=== PATIENT | female | born 1990 | race Caucasian/White ===

== ENCOUNTER 2024-12-08 13:21 | Emergency (ER) | payer MEDICAID, SELFPAY ==
[2024-12-08 13:31] VITALS: BP 150/90; PULSE 88; RESP 17; TEMP 36.4; O2SAT 97; BMI 41.3
[2024-12-08 14:13] LABS: Collection Type, Urine Clean Catch
--- NOTE | 2024-12-08 14:22 | EDNOTE_ITS ---
ED Female Urogenital RME/HPI General Chief complaint: Urogenital-Female Stated complaint: MEDICAL CLEARANCE Time Seen by Provider: 12/08/24 13:26 Arrival date/time: 12/08/24 13:21 Limitations: no limitations RME / HPI RME / HPI Narrative: 34 year old female with history of kidney stones s/p ureteral stent placement presents to the ED brought in by [facility] for medical clearance today. Patient reports left flank and suprapubic abdominal pain today. States she has history of intermittent pain for several months which she says is due to recurring kidney and bladder stones. However, pain today is severe with no reported modifying factors. Accompanied by dysuria, urinary urgency, and nausea. Denies fevers, chills, vomiting, or hematuria. No other associated symptoms or complaints reported. Related Data Home Medications ?Medication ?Instructions ?Recorded ?Confirmed No Known Home Medications 11/12/22 0811/27 Allergies Allergy/AdvReac Type Severity Reaction Status Date / Time No Known Allergies Allergy Verified 11/12/22 09:02 Review of Systems Review of Systems Systems Reviewed: All systems reviewed, normal except as documented Past Medical History Past Medical History CARDIAC: Negative Congestive Heart Failure RESPIRATORY: Positive Asthma; Negative Chronic Obstructive Pulmonary Disease (COPD) GENITOURINARY: Negative Renal Disease ENDOCRINE: Negative Diabetes Mellitus Type 1 or Diabetes Mellitus Type 2 Social History SMOKING STATUS: Current every day smoker SUBSTANCE USE: amphetamines, methamphetamine and other (Benzodiazepines (Valium) ) ED Exam General Limitations: Present no limitations General appearance: Present alert and obese Head Head exam: Present atraumatic Eye Eye exam: Present normal appearance, PERRL and EOMI ENT ENT exam: Present normal exam, normal oropharynx and mucous membranes moist Neck Neck exam: Present normal inspection, full ROM and trachea midline Chest Chest inspection: Present normal inspection and symmetric chest wall rise Respiratory Respiratory exam: Present normal lung sounds bilaterally Cardiovascular Cardiovascular exam: Present regular rate, normal rhythm and normal heart sounds Abdominal Exam Abdominal exam: Present soft and normal bowel sounds Extremities Exam Extremities exam: Present normal inspection and full ROM Back Exam Back exam: Present full ROM and CVA tenderness (R) (mild tenderness) Neurological Exam Neurological exam: Present alert, oriented X3 and CN II-XII intact Psychiatric Psychiatric exam: Present normal affect and normal mood Skin Skin exam: Present warm, dry, intact and normal color Course Course Course Narrative: Patient received IV fluids, Zofran, and Morphine while in the ED with improvement. 1650: Made aware by RN the patient is wishing to leave against medical advice. I discussed a great length that without further evaluation and monitoring there may be unforeseen circumstances and deterioration causing permanent bodily harm or as a result of their choice. The patient is alert, oriented and competent at this time. The patient states that they are aware of the serious risks as explained, but they continue to wish to leave against medical advice. Quality Measures none Orders Category Date Time Status IV [Insert IV] NOW Care 12/08/24 15:46 Completed Blood Culture (Lab) Stat Lab 12/08/24 14:40 Completed CBC Stat Lab 12/08/24 14:46 Completed Comprehensive Metabolic Panel Stat Lab 12/08/24 14:46 Completed Lactate (Lactic Acid) Stat Lab 12/08/24 14:46 Completed Lipase Stat Lab 12/08/24 14:46 Completed Magnesium Stat Lab 12/08/24 14:46 Completed Procalcitonin Stat Lab 12/08/24 14:46 Completed Troponin I Stat Lab 12/08/24 14:46 Completed Urinalysis Stat Lab 12/08/24 14:07 Completed Urine Culture Stat Lab 12/08/24 14:07 Completed Morphine* Inj Med 12/08/24 14:04 Discontinued 4 mg IVP X1 ONE Ondansetron Inj [Zofran Inj] Med 12/08/24 14:04 Discontinued 4 mg IVP X1 ONE Sodium Chloride 0.9% 1000 ml [Ns] 1,000 ml Med 12/08/24 14:04 Discontinued IV 999 mls/hr Vital Signs Vital signs: Vital Signs Temperature 97.5 F 12/08/24 13:31 Pulse Rate 88 12/08/24 13:31 Respiratory Rate 17 12/08/24 13:31 Blood Pressure 150/90 H 12/08/24 13:31 Pulse Oximetry (%) 97 12/08/24 13:31 Oxygen Delivery Method Room Air 12/08/24 13:31 Pulse ox is 97% on room air which is adequate. Urogenital - Female MDM Narrative MDM Narrative:: Shonda Miles, nader scribing for and in the presence of Dr. Cooper. Patient data External records reviewed:: [facility] previous records (I reviewed ED visit on 11/12/2022) Clinical information provided by:: patient Social determinants that could affect healthcare access:: none Patient has the following chronic illnesses:: Kidney and bladder stones, s/p ureteral stent placement, recurring pyelonephritis How is presenting disease/condition affected by chronic disease/condition?: exacerbated by Evaluation data The following diagnostics were reviewed and interpreted by me:: lab results Lab and/or radiology exams considered but not ordered:: None Interpretation Summary: CBC with no acute findings. Kidney function within normal limits. Urinalysis indicates a UTI with 800 WBC, 354 RBC, positive leukocyte esterase. Medications / Prescriptions Medications or Prescriptions considered but not ordered:: None Medication administrations:: Medication Administration History Discontinued Medications Sodium Chloride (Ns) 1,000 mls @ 999 mls/hr IV .Q1H1M ONE Stop: 12/08/24 15:04 Last Infusion: 12/08/24 16:45 Dose: Infused Documented By: Admin: 12/08/24 15:54 Dose: 999 mls/hr Documented By: BY Morphine Sulfate (Morphine Sulf Inj 4 Mg/Ml Vial) 4 mg IVP X1 ONE Stop: 12/08/24 14:05 Last Admin: 12/08/24 15:52 Dose: 4 mg Documented By: BY Ondansetron HCl (Ondansetron Inj 2 Mg/Ml Inj 2 Ml) 4 mg IVP X1 ONE Stop: 12/08/24 14:05 Last Admin: 12/08/24 15:54 Dose: 4 mg Documented By: BY See above Consultations Consultation(s) initiated? (list below): No Diagnosis Urogenital Female Differential Diagnosis: urinary tract infection, cystitis and other (pyelonephritis ) Most likely diagnosis given after review of the tests above:: UTI Admission Indicated Admission indicated?: not indicated Explain why admission is indicated or not indicated:: Patient signed out AGAINST MEDICAL ADVICE Admission Request Was there a request for admission?: No Disposition Plan Disposition Plan: other (specify) (LEFT AGAINST MEDICAL ADVICE ) Discharge Plan Plan Patient Disposition: Left Against Medical Advice Prescriptions/Referrals Prescriptions/Med Rec: No Action No Known Home Medications Referrals: No Primary/Family,Physician [Primary Care Provider] - In 1 week Problem List Clinical Impression: Urinary tract infection Patient/Caregiver Discharge Instructions Print Language: Kiswahili
[2024-12-08 14:30] LABS: Bilirubin,Urine Negative (Negative); Blood,Urine 2+ (Negative); Color,Urine Yellow (Lt Yel-Yel); Glucose, Urine Negative (Negative); Ketones,Urine Negative (Negative); Leukocyte Esterase,Urine Positive (Negative); Nitrite,Urine Negative (Negative); PH,Urine 7.0 (5.0-7.0); Protein,Urine 2+ (Neg - Trace); RBC,Urine 354 /hpf (0-3); Specific Gravity,Urine 1.018 (1.001-1.035); Squamous Epithelial Cell,Urine 17 /hpf (0-5); Urobilinogen,Urine Negative mg/dL (0.0-1.0); WBC,Urine 800 /hpf (0-5)
[2024-12-08 14:50] LABS: Clarity,Urine Cloudy (Clear/Hazy)
[2024-12-08 15:00] LABS: Lactate (Lactic Acid) 0.7 mMol/L (0.4-2.0)
[2024-12-08 15:06] LABS: Basophils # (Auto) 0.0 Thou/mm3 (0.0-0.2); Basophils % (Auto) 0 % (0-2.5); Eosinophils # (Auto) 0.1 Thou/mm3 (0.0-0.5); Eosinophils % (Auto) 1 % (0-10); Hematocrit 35.2 % (36.0-46.0); Hemoglobin 10.9 g/dL (12.0-16.0); Immature Granulocytes Auto 0.02 Thou/mm3 (0.00-0.00); Lymphocytes # (Auto) 1.9 Thou/mm3 (1.0-4.8); Lymphocytes % (Auto) 20 % (10-50); Mean Corpuscular HGB Conc 31.0 g/dl (31.0-37.0); Mean Corpuscular Hemoglobin 28.7 pg (25.0-35.0); Mean Corpuscular Volume 93 fL (80-100); Monocytes # (Auto) 0.6 Thou/mm3 (0.0-0.8); Monocytes % (Auto) 7 % (0-12); Neutrophils # (Auto) 6.8 Thou/mm3 (1.8-7.7); Neutrophils % (Auto) 71 % (37-80); Nucleated Red Blood Cell # 0.00 Thou/mm3 (0.00-0.00); Nucleated Red Blood Cell % 0 /100 WBC (0); Platelet Count 262 Thou/mm3 (140-440); RDW Standard Deviation 50.6 fL (36.4-46.3); Red Blood Count 3.80 Miln/mm3 (4.00-5.20); White Blood Count 9.5 Thou/mm3 (3.6-11.0)
[2024-12-08 15:29] LABS: Alanine Aminotransferase 55 U/L (10-49); Albumin, Serum 4.3 gm/dL (3.5-5.0); Albumin/Globulin Ratio 1.7 (1.2-2.2); Alkaline Phosphatase 82 U/L (46-116); Anion Gap 7 (7-16); Aspartate Amino Transferase 43 U/L (0-34); BUN/Creatinine Ratio 12 Ratio (12-20); Bilirubin,Total 0.5 mg/dL (0.3-1.2); Blood Urea Nitrogen 14 mg/dL (9-23); Calcium 9.9 mg/dL (8.3-10.6); Calcium (Corrected) 9.9 mg/dL (8.5-10.1); Carbon Dioxide 26.7 mMol/L (20.0-31.0); Chloride 104 mMol/L (98-107); Creatinine (Component) 1.2 mg/dL (0.6-1.3); Estimated Creatinine Clearance 78.3 mL/min (>60); Globulin 2.6 gm/dL (2.3-3.5); Glucose 87 mg/dL (74-106); Lipase 21 U/L (12-53); Magnesium 1.6 mg/dL (1.6-2.6); Osmolality,Calculated 275 (275-295); Potassium 4.9 mMol/L (3.4-5.1); Procalcitonin 0.08 ng/ml (0.0-0.49); Sodium 138 mMol/L (136-145); Total Protein 6.9 gm/dL (5.7-8.2); Troponin I < 0.020 ng/mL (0.0-0.045); eGFR > 60 See Note
[2024-12-08 15:48] VITALS: BP 129/84; PULSE 85; RESP 16; O2SAT 98
[2024-12-08] MEDS: MORPHINE SULF INJ 4 MG/ML VIAL IVP (15:52)
[2024-12-08] MEDS: ONDANSETRON INJ 2 MG/ML INJ 2 ML 4 MG IVP (15:54)
[2024-12-08] MEDS: SODIUM CHLORIDE 0.9% 1000 ML 1,000 ML 999 ML IV (15:54)
== END 2024-12-08 16:58 | disposition left against medical advice (07) ==
LOC: SERX 13:40
PROVIDERS: Emergency Provider Emergency Medicine
DX: Z02.89 Encounter for other administrative examinations (principal); N39.0 Urinary tract infection, site not specified; Z87.442 Personal history of urinary calculi; Z53.29 Procedure and treatment not carried out because of patient's decision for other reasons
CPT/HCPCS: 36415; 80053; 81001; 81025; 83605; 83690; 83735; 84145; 84484; 85025; 87040; 87086; 96361; 96374; 96375; 99283; J2270; J2405; J7030